=== PATIENT | male | born 1990 | race Caucasian/White ===

== ENCOUNTER 2017-09-03 10:15 | Emergency (ER) | payer MEDICAID ==
[~2017-09-03] VITALS: Ht 193 cm; Wt 113.0 kg
[2017-09-03] MEDS ORDERED: PANTOPRAZOLE 80 MG in SODIUM CHLORIDE 0.9% 50 ML IVPB ONE (10:43)
[2017-09-03] MEDS ORDERED: SODIUM CHLORIDE FLUSH 10ML SYR IVF ONE (11:00)
[2017-09-03] MEDS ORDERED: ONDANSETRON ODT 4 MG PO ONE (11:00)
[2017-09-03] MEDS ORDERED: FAMOTIDINE 20 MG/2 ML IVPush ONE (11:00)
[2017-09-03] MEDS ORDERED: ONDANSETRON ODT 8 MG ONE (11:03)
[2017-09-03] MEDS ORDERED: FAMOTIDINE 20 MG/2 ML ONE (11:03)
[2017-09-03 11:06] LABS: BASOPHILS # (AUTO) 0.02 x10^3/uL (0-0.1); BASOPHILS % (AUTO) 0 % (0-1); EOSINOPHILS # (AUTO) 0.05 x10^3/uL (0-0.4); EOSINOPHILS % (AUTO) 0 % (1-7); LYMPHOCYTES % (AUTO) 16 % (22-44); MD NO; MEAN CORPUSCULAR HEMOGLOBIN 31.4 pg (27.5-34.5); MEAN CORPUSCULAR HGB CONC 34.1 g/dL (33.2-36.2); MEAN CORPUSCULAR VOLUME 91.9 fL (81-97); MEAN PLATELET VOLUME 9.1 fL (7.4-10.4); MONOCYTES % (AUTO) 4 % (2-9); NEUTROPHILS # (AUTO) 8.77 x10^3/uL (1.8-6.8); NEUTROPHILS % (AUTO) 80 % (42-75); PLATELET COUNT 211 x10^3/uL (130-400); RED BLOOD COUNT 5.49 x10^6/uL (4.38-5.82); RED CELL DISTRIBUTION WIDTH 13.1 % (9.4-14.8)
[2017-09-03 11:16] LABS: ALANINE AMINOTRANSFERASE 23 U/L (12-78); ALBUMIN 4.2 g/dL (3.4-5.0); ANION GAP 8 mmol/L (5-15); CALCIUM 8.9 mg/dL (8.5-10.1); CHLORIDE 109 mmol/L (98-107); CREATININE 1.09 mg/dL (0.7-1.3)
[2017-09-03 11:18] LABS: ALKALINE PHOSPHATASE 68 U/L (45-117); BILIRUBIN,TOTAL 0.4 mg/dL (0.2-1.0); TOTAL PROTEIN 8.2 g/dL (6.4-8.2)
[2017-09-03 13:40] VITALS: BP 116/67
== END 2017-09-03 14:22 | disposition home or self-care (01) ==
LOC: ED 12:45
DX: K92.0 Hematemesis (principal)
CPT/HCPCS: 36415; 74021; 80053; 83690; 85025; 96365; 96375; 99285; C9113; Q0162; S0028

== ENCOUNTER 2017-09-27 08:43 | Emergency (ER) | payer MEDICAID ==
[~2017-09-27] VITALS: Ht 193 cm; Wt 110.9 kg
[2017-09-27] MEDS ORDERED: [UNRECOGNIZED DRUG - OTHER] (09:16)
[2017-09-27] MEDS ORDERED: BP MED (09:17)
[2017-09-27] MEDS ORDERED: SERT25TA PO (09:17)
[2017-09-27] MEDS ORDERED: HEART MED (09:17)
[2017-09-27] MEDS ORDERED: MAALOX/HYOSCYAMINE/LIDOCAINE 45 ML BTL PO ONE (09:30)
[2017-09-27] MEDS ORDERED: MAALOX/HYOSCYAMINE/LIDOCAINE 45 ML BTL ONE (09:36)
[2017-09-27 09:49] LABS: BASOPHILS # (AUTO) 0.03 x10^3/uL (0-0.1); BASOPHILS % (AUTO) 0 % (0-1); EOSINOPHILS # (AUTO) 0.11 x10^3/uL (0-0.4); EOSINOPHILS % (AUTO) 1 % (1-7); LYMPHOCYTES # (AUTO) 1.66 x10^3/uL (1-3.4); LYMPHOCYTES % (AUTO) 22 % (22-44); MD NO; MEAN CORPUSCULAR HEMOGLOBIN 30.7 pg (27.5-34.5); MEAN CORPUSCULAR HGB CONC 33.3 g/dL (33.2-36.2); MEAN CORPUSCULAR VOLUME 92.1 fL (81-97); MEAN PLATELET VOLUME 9.2 fL (7.4-10.4); MONOCYTES # (AUTO) 0.55 x10^3/uL (0.2-0.8); MONOCYTES % (AUTO) 7 % (2-9); NEUTROPHILS # (AUTO) 5.22 x10^3/uL (1.8-6.8); NEUTROPHILS % (AUTO) 69 % (42-75); PLATELET COUNT 194 x10^3/uL (130-400); RED BLOOD COUNT 5.24 x10^6/uL (4.38-5.82); RED CELL DISTRIBUTION WIDTH 12.4 % (9.4-14.8)
[2017-09-27 09:59] LABS: ALBUMIN 3.9 g/dL (3.4-5.0); ANION GAP 6 mmol/L (5-15); CALCIUM 8.5 mg/dL (8.5-10.1); CHLORIDE 111 mmol/L (98-107)
[2017-09-27 10:03] LABS: ALANINE AMINOTRANSFERASE 22 U/L (12-78); ALKALINE PHOSPHATASE 61 U/L (45-117); BILIRUBIN,TOTAL 0.5 mg/dL (0.2-1.0); CREATININE 1.07 mg/dL (0.7-1.3); TOTAL PROTEIN 7.4 g/dL (6.4-8.2)
[2017-09-27 11:17] VITALS: BP 139/76
== END 2017-09-27 11:19 | disposition home or self-care (01) ==
LOC: ED 11:00
DX: K92.0 Hematemesis (principal); F17.200 Nicotine dependence, unspecified, uncomplicated; Z88.0 Allergy status to penicillin
CPT/HCPCS: 36415; 80053; 83690; 85025; 86677; 99284

== ENCOUNTER 2017-09-29 23:15 | Emergency (ER) | payer MEDICAID ==
[~2017-09-29] VITALS: Ht 193 cm; Wt 110.6 kg
[~2017-09-29 23:15] MED LIST: BP MED; HEART MED; SERT25TA PO; [UNRECOGNIZED DRUG - OTHER]
[2017-09-30 00:10] LABS: BASOPHILS # (AUTO) 0.05 x10^3/uL (0-0.1); BASOPHILS % (AUTO) 0 % (0-1); EOSINOPHILS # (AUTO) 0.17 x10^3/uL (0-0.4); EOSINOPHILS % (AUTO) 1 % (1-7); LYMPHOCYTES # (AUTO) 2.48 x10^3/uL (1-3.4); LYMPHOCYTES % (AUTO) 17 % (22-44); MD NO; MEAN CORPUSCULAR HEMOGLOBIN 31.6 pg (27.5-34.5); MEAN CORPUSCULAR HGB CONC 34.2 g/dL (33.2-36.2); MEAN CORPUSCULAR VOLUME 92.4 fL (81-97); MEAN PLATELET VOLUME 9.5 fL (7.4-10.4); MONOCYTES # (AUTO) 0.73 x10^3/uL (0.2-0.8); MONOCYTES % (AUTO) 5 % (2-9); NEUTROPHILS # (AUTO) 10.96 x10^3/uL (1.8-6.8); NEUTROPHILS % (AUTO) 76 % (42-75); PLATELET COUNT 206 x10^3/uL (130-400); RED BLOOD COUNT 5.15 x10^6/uL (4.38-5.82); RED CELL DISTRIBUTION WIDTH 12.8 % (9.4-14.8)
[2017-09-30 00:21] LABS: ALBUMIN 3.9 g/dL (3.4-5.0); ANION GAP 8 mmol/L (5-15); CALCIUM 9.3 mg/dL (8.5-10.1); CHLORIDE 109 mmol/L (98-107)
[2017-09-30 00:25] LABS: ALANINE AMINOTRANSFERASE 19 U/L (12-78); ALKALINE PHOSPHATASE 53 U/L (45-117); BILIRUBIN,TOTAL 0.7 mg/dL (0.2-1.0); CREATININE 1.12 mg/dL (0.7-1.3); TOTAL PROTEIN 7.6 g/dL (6.4-8.2)
[2017-09-30] MEDS ORDERED: PROMETHAZINE 25 MG/ML, 1ML IM ONE (01:00)
[2017-09-30] MEDS ORDERED: MAALOX/HYOSCYAMINE/LIDOCAINE 45 ML BTL PO ONE (01:00)
[2017-09-30] MEDS ORDERED: PROMETHAZINE 25 MG/ML, 1ML ONE (01:25)
[2017-09-30] MEDS ORDERED: MAALOX/HYOSCYAMINE/LIDOCAINE 45 ML BTL ONE (01:25)
[2017-09-30 01:45] LABS: MICROSCOPIC NOT IND
[2017-09-30 01:46] VITALS: BP 113/63
[2017-09-30 01:47] LABS: CULTURE INDICATED? NO
== END 2017-09-30 01:48 | disposition home or self-care (01) ==
LOC: ED 23:59
DX: F12.288 Cannabis dependence with other cannabis-induced disorder (principal); K22.6 Gastro-esophageal laceration-hemorrhage syndrome; R10.84 Generalized abdominal pain; R11.10 Vomiting, unspecified; F17.200 Nicotine dependence, unspecified, uncomplicated
CPT/HCPCS: 36415; 80053; 81003; 83690; 85025; 96372; 99284; J2550

== ENCOUNTER 2017-10-23 12:08 | Emergency (ER) | payer MEDICAID ==
[~2017-10-23] VITALS: Ht 193 cm; Wt 107.8 kg
[2017-10-23] MEDS ORDERED: SERT50TA PO (13:54)
[2017-10-23] MEDS ORDERED: ONDANSETRON ODT 4 MG PO ONE (14:00)
[2017-10-23] MEDS ORDERED: MAALOX/HYOSCYAMINE/LIDOCAINE 45 ML BTL PO ONE (14:00)
[2017-10-23] MEDS ORDERED: BACITRACIN ZINC OINT 500U/GM, 0.9 GM TP ONE (14:00)
[2017-10-23] MEDS ORDERED: PROMETHAZINE 25 MG/ML, 1ML IM ONE (14:00)
[2017-10-23] MEDS ORDERED: BACITRACIN ZINC OINT 500U/GM, 0.9 GM ONE (14:06)
[2017-10-23] MEDS ORDERED: ONDANSETRON ODT 4 MG ONE (14:07)
[2017-10-23] MEDS ORDERED: PROMETHAZINE 25 MG/ML, 1ML ONE (14:08)
[2017-10-23] MEDS ORDERED: MAALOX/HYOSCYAMINE/LIDOCAINE 45 ML BTL ONE (14:08)
[2017-10-23 14:15] LABS: BASOPHILS # (AUTO) 0.03 x10^3/uL (0-0.1); BASOPHILS % (AUTO) 0 % (0-1); EOSINOPHILS # (AUTO) 0.07 x10^3/uL (0-0.4); EOSINOPHILS % (AUTO) 1 % (1-7); LYMPHOCYTES # (AUTO) 1.65 x10^3/uL (1-3.4); LYMPHOCYTES % (AUTO) 23 % (22-44); MD NO; MEAN CORPUSCULAR HEMOGLOBIN 31.6 pg (27.5-34.5); MEAN CORPUSCULAR HGB CONC 34.1 g/dL (33.2-36.2); MEAN CORPUSCULAR VOLUME 92.6 fL (81-97); MEAN PLATELET VOLUME 9.4 fL (7.4-10.4); MONOCYTES # (AUTO) 0.86 x10^3/uL (0.2-0.8); MONOCYTES % (AUTO) 12 % (2-9); NEUTROPHILS # (AUTO) 4.52 x10^3/uL (1.8-6.8); NEUTROPHILS % (AUTO) 64 % (42-75); PLATELET COUNT 217 x10^3/uL (130-400); RED BLOOD COUNT 5.22 x10^6/uL (4.38-5.82); RED CELL DISTRIBUTION WIDTH 12.7 % (9.4-14.8)
[2017-10-23 14:28] LABS: ALANINE AMINOTRANSFERASE 22 U/L (12-78); ALBUMIN 3.8 g/dL (3.4-5.0); ANION GAP 7 mmol/L (5-15); CALCIUM 9.3 mg/dL (8.5-10.1); CHLORIDE 108 mmol/L (98-107)
[2017-10-23 14:30] LABS: ALKALINE PHOSPHATASE 72 U/L (45-117); BILIRUBIN,TOTAL 0.5 mg/dL (0.2-1.0); TOTAL PROTEIN 7.7 g/dL (6.4-8.2)
[2017-10-23] MEDS ORDERED: HYDROcodone/APAP 5/325 TABLET ONE (15:23)
[2017-10-23] MEDS ORDERED: HYDROcodone/APAP 5/325 TABLET PO ONE (15:30)
[2017-10-23 16:27] VITALS: BP 137/69
[2017-10-23] MEDS ORDERED: SERT50TA5 PO (21:49)
[2017-10-23] MEDS ORDERED: ONDA4TAB7 PO (21:49)
[2017-10-23] MEDS ORDERED: LISI5TAB7 PO (21:49)
[2017-10-23] MEDS ORDERED: SUCR1TAB PO (21:49)
[2017-10-23] MEDS ORDERED: PROM25SU34 RC ×2 (21:49)
[2017-10-23] MEDS ORDERED: OMEP40CA6 PO (21:49)
== END 2017-10-23 16:30 | disposition home or self-care (01) ==
LOC: ED 14:32
DX: T25.221A Burn of second degree of right foot, initial encounter (principal); R11.2 Nausea with vomiting, unspecified; T31.0 Burns involving less than 10% of body surface; X08.8XXA Exposure to other specified smoke, fire and flames, initial encounter; Y93.89 Activity, other specified; Y92.89 Other specified places as the place of occurrence of the external cause; Y99.8 Other external cause status
CPT/HCPCS: 16000; 36415; 80053; 83690; 85025; 96372; 99284; J2550; Q0162

== ENCOUNTER 2017-10-23 19:51 | Inpatient (IN) | payer MEDICAID ==
[~2017-10-23] VITALS: Ht 182.9 cm; Wt 110.8 kg
[~2017-10-23 19:51] MED LIST changes: +ETOMIDATE 20 MG/10 ML ONE; +MIDAZOLAM 1 MG/ML, 5ML ONE; +PROPOFOL 10 MG/ML, 100ML IV ONE; +SERT50TA PO; +SUCCINYLCHOLINE 20 MG/ML, 10ML ONE
[2017-10-23] MEDS ORDERED: SODIUM CHLORIDE FLUSH 10ML SYR IVF ONE (20:00)
[2017-10-23 20:16] LABS: BASOPHILS # (AUTO) 0.03 x10^3/uL (0-0.1); BASOPHILS % (AUTO) 0 % (0-1); EOSINOPHILS # (AUTO) 0.08 x10^3/uL (0-0.4); EOSINOPHILS % (AUTO) 1 % (1-7); LYMPHOCYTES # (AUTO) 2.25 x10^3/uL (1-3.4); LYMPHOCYTES % (AUTO) 27 % (22-44); MD NO; MEAN CORPUSCULAR HEMOGLOBIN 31.7 pg (27.5-34.5); MEAN CORPUSCULAR HGB CONC 34.2 g/dL (33.2-36.2); MEAN CORPUSCULAR VOLUME 92.6 fL (81-97); MEAN PLATELET VOLUME 9.2 fL (7.4-10.4); MONOCYTES # (AUTO) 1.01 x10^3/uL (0.2-0.8); MONOCYTES % (AUTO) 12 % (2-9); NEUTROPHILS # (AUTO) 4.91 x10^3/uL (1.8-6.8); NEUTROPHILS % (AUTO) 59 % (42-75); PLATELET COUNT 206 x10^3/uL (130-400); RED BLOOD COUNT 5.17 x10^6/uL (4.38-5.82); RED CELL DISTRIBUTION WIDTH 12.6 % (9.4-14.8)
[2017-10-23 20:25] LABS: ALANINE AMINOTRANSFERASE 23 U/L (12-78); ALBUMIN 3.8 g/dL (3.4-5.0); ANION GAP 6 mmol/L (5-15); CALCIUM 8.6 mg/dL (8.5-10.1); CHLORIDE 110 mmol/L (98-107)
[2017-10-23 20:28] LABS: ALKALINE PHOSPHATASE 71 U/L (45-117); BILIRUBIN,TOTAL 0.3 mg/dL (0.2-1.0); CREATININE 1.16 mg/dL (0.7-1.3); TOTAL PROTEIN 7.6 g/dL (6.4-8.2)
[2017-10-23 20:33] LABS: ACETAMINOPHEN < 2 mcg/mL (10-30)
[2017-10-23] MEDS ORDERED: METOCLOPRAMIDE 5 MG/ML, 2ML ONE (20:40)
[2017-10-23] MEDS ORDERED: METOCLOPRAMIDE 5 MG/ML, 2ML IVPush ONE (21:00)
[2017-10-23] MEDS ORDERED: PLEASE ENTER WEIGHT MC SCH (21:00)
[2017-10-23] MEDS ORDERED: LISI5TAB7 PO (21:49)
[2017-10-23] MEDS ORDERED: SUCR1TAB PO (21:49)
[2017-10-23] MEDS ORDERED: OMEP40CA6 PO (21:49)
[2017-10-23] MEDS ORDERED: ONDA4TAB7 PO (21:49)
[2017-10-23] MEDS ORDERED: SERT50TA5 PO (21:49)
[2017-10-23] MEDS ORDERED: PROM25SU34 RC ×2 (21:49)
[2017-10-23] MEDS ORDERED: SODIUM CHLORIDE 0.9% 1,000 ML IV ONE (23:05)
[2017-10-23] MEDS: PROPOFOL 100 ML IV PRN (23:20)
[2017-10-23] MEDS ORDERED: PROPOFOL 100 ML IV ONE (23:55)
[2017-10-24] MEDS ORDERED: SENNOSIDES 8.8 MG/5 ML ORAL SOL NG PRN
[2017-10-24] MEDS ORDERED: LACTULOSE 20 GM/30 ML UDC NG PRN
[2017-10-24] MEDS ORDERED: BISACODYL 10 MG SUPP PR PRN
[2017-10-24] MEDS ORDERED: LIDOCAINE-MPF 1%, 2ML ENDO PRN
[2017-10-24] MEDS ORDERED: PHARMACY MAY ADJ FOR RENAL FX MC SCH
[2017-10-24] MEDS ORDERED: SENNA/DOCUSATE TABLET NG PRN
[2017-10-24] MEDS ORDERED: MIDAZOLAM 1 MG/ML, 5ML IVPush ONE
[2017-10-24 00:06] LABS: AMPHETAMINE SCREEN, URINE Negative (Negative); BARBITURATE SCREEN, URINE Negative (Negative); BENZODIAZEPINE SCREEN, URINE Negative (Negative); CANNABINOID SCREEN, URINE Positive (Negative); COCAINE SCREEN, URINE Negative (Negative); METHADONE SCREEN, URINE Negative (Negative); OPIATE SCREEN, URINE Positive (Negative)
[2017-10-24] MEDS ORDERED: LABETALOL 5MG/ML, 20ML IVPush PRN (00:30)
[2017-10-24] MEDS ORDERED: ETOMIDATE 20 MG/10 ML IVPush ONE (00:30)
[2017-10-24] MEDS ORDERED: ONDANSETRON 2MG/ML, 2ML IVPush PRN (00:30)
[2017-10-24] MEDS ORDERED: ATROPINE SYRINGE 0.1 MG/ML, 10ML IVPush ONE (00:30)
[2017-10-24] MEDS ORDERED: SUCCINYLCHOLINE 20 MG/ML, 10ML IVPush ONE (00:30)
[2017-10-24] MEDS ORDERED: FAMOTIDINE 20 MG/2 ML ONE (00:37)
[2017-10-24] MEDS ORDERED: ENOXAPARIN 40 MG/0.4 ML ONE (00:37)
[2017-10-24] MEDS: ENOXAPARIN 40 MG/0.4 ML SQ SCH (00:39)
[2017-10-24] MEDS: FAMOTIDINE 20 MG/2 ML IV SCH ×2 (00:39→13:47)
[2017-10-24] MEDS: D5%-0.45NACL+KCL 20MEQ 1,000 ML IV SCH ×2 (01:09→10:12)
[2017-10-24 04:24] LABS: BASOPHILS # (AUTO) 0.02 x10^3/uL (0-0.1); BASOPHILS % (AUTO) 0 % (0-1); EOSINOPHILS # (AUTO) 0.01 x10^3/uL (0-0.4); EOSINOPHILS % (AUTO) 0 % (1-7); LYMPHOCYTES # (AUTO) 1.49 x10^3/uL (1-3.4); LYMPHOCYTES % (AUTO) 16 % (22-44); MD NO; MEAN CORPUSCULAR HGB CONC 33.7 g/dL (33.2-36.2); MEAN PLATELET VOLUME 9.5 fL (7.4-10.4); MONOCYTES # (AUTO) 0.61 x10^3/uL (0.2-0.8); MONOCYTES % (AUTO) 6 % (2-9); NEUTROPHILS # (AUTO) 7.39 x10^3/uL (1.8-6.8); NEUTROPHILS % (AUTO) 78 % (42-75); PLATELET COUNT 191 x10^3/uL (130-400); RED CELL DISTRIBUTION WIDTH 12.7 % (9.4-14.8)
[2017-10-24 04:25] VITALS: BP 114/66
[2017-10-24 04:37] LABS: ANION GAP 5 mmol/L (5-15); CALCIUM 8.3 mg/dL (8.5-10.1); CHLORIDE 114 mmol/L (98-107)
[2017-10-24] MEDS: PROPOFOL 100 ML IV PRN ×6 (07:57→23:05)
[2017-10-24] MEDS ORDERED: EPINEPHRINE SYRINGE 0.1 MG/ML, 10ML ONE (08:00)
[2017-10-24] MEDS ORDERED: ATROPINE SYRINGE 0.1 MG/ML, 10ML ONE (08:00)
[2017-10-24] MEDS ORDERED: FAMOTIDINE 20 MG/2 ML IVPush SCH (09:00)
[2017-10-24] MEDS: LORazepam 2 MG/ML, 1ML IVPush PRN ×2 (13:47→22:35)
[2017-10-24] MEDS: morphine SULFATE 10 MG/ML, 1ML IVPush PRN ×2 (16:16→21:21)
[2017-10-24] MEDS: PANTOPRAZOLE 40 MG IV IVPush SCH (20:43)
[2017-10-24] MEDS: FOLIC ACID 1 MG TABLET PO SCH (20:43)
[2017-10-24] MEDS: THIAMINE 100MG TABLET PO SCH (20:43)
[2017-10-24] MEDS ORDERED: SODIUM CHLORIDE 0.9% 1,000 ML IV SCH (23:30)
[2017-10-25] MEDS: ENOXAPARIN 40 MG/0.4 ML SQ SCH (00:04)
[2017-10-25] MEDS: PROPOFOL 100 ML IV PRN ×4 (01:21→09:37)
[2017-10-25] MEDS ORDERED: MORPHINE SULFATE 4 MG/ML, 1ML ONE ×2 (01:41→04:55)
[2017-10-25] MEDS: morphine SULFATE 10 MG/ML, 1ML IVPush PRN ×2 (01:43→04:57)
[2017-10-25] MEDS: LORazepam 2 MG/ML, 1ML IVPush PRN (03:47)
[2017-10-25 04:00] VITALS: BP 127/76
[2017-10-25 04:15] LABS: BASOPHILS # (AUTO) 0.04 x10^3/uL (0-0.1); BASOPHILS % (AUTO) 0 % (0-1); EOSINOPHILS # (AUTO) 0.07 x10^3/uL (0-0.4); EOSINOPHILS % (AUTO) 1 % (1-7); LYMPHOCYTES # (AUTO) 2.38 x10^3/uL (1-3.4); LYMPHOCYTES % (AUTO) 25 % (22-44); MD NO; MEAN CORPUSCULAR HEMOGLOBIN 31.3 pg (27.5-34.5); MEAN CORPUSCULAR HGB CONC 33.7 g/dL (33.2-36.2); MEAN CORPUSCULAR VOLUME 92.8 fL (81-97); MEAN PLATELET VOLUME 9.3 fL (7.4-10.4); MONOCYTES # (AUTO) 0.84 x10^3/uL (0.2-0.8); MONOCYTES % (AUTO) 9 % (2-9); NEUTROPHILS # (AUTO) 6.03 x10^3/uL (1.8-6.8); NEUTROPHILS % (AUTO) 64 % (42-75); PLATELET COUNT 160 x10^3/uL (130-400); RED BLOOD COUNT 4.54 x10^6/uL (4.38-5.82); RED CELL DISTRIBUTION WIDTH 12.8 % (9.4-14.8)
[2017-10-25 04:25] LABS: ALANINE AMINOTRANSFERASE 18 U/L (12-78); ALBUMIN 3.1 g/dL (3.4-5.0); ANION GAP 4 mmol/L (5-15); CHLORIDE 112 mmol/L (98-107); CREATININE 1.18 mg/dL (0.7-1.3)
[2017-10-25 04:27] LABS: ALKALINE PHOSPHATASE 59 U/L (45-117); BILIRUBIN,TOTAL 0.5 mg/dL (0.2-1.0); TOTAL PROTEIN 6.4 g/dL (6.4-8.2)
[2017-10-25] MEDS: PANTOPRAZOLE 40 MG IV IVPush SCH ×2 (06:16→20:30)
[2017-10-25] MEDS ORDERED: POTASSIUM PHOSPHATE 44 MEQ in SODIUM CHLORIDE 0.9% 500 ML IV ONE (06:30)
[2017-10-25 20:00] VITALS: BP 145/66
[2017-10-25] MEDS: THIAMINE 100MG TABLET PO SCH (20:30)
[2017-10-25] MEDS: FOLIC ACID 1 MG TABLET PO SCH (20:30)
[2017-10-25] MEDS: KETOROLAC 30 MG/1 ML IVPush PRN (20:30)
[2017-10-25] MEDS: NICOTINE 21 MG/24 HR PATCH.TD24 TD SCH (23:04)
[2017-10-26 00:26] VITALS: BP 136/81
[2017-10-26] MEDS: KETOROLAC 30 MG/1 ML IVPush PRN (05:35)
[2017-10-26 05:57] LABS: BASOPHILS # (AUTO) 0.03 x10^3/uL (0-0.1); BASOPHILS % (AUTO) 0 % (0-1); EOSINOPHILS # (AUTO) 0.03 x10^3/uL (0-0.4); EOSINOPHILS % (AUTO) 0 % (1-7); LYMPHOCYTES # (AUTO) 1.84 x10^3/uL (1-3.4); LYMPHOCYTES % (AUTO) 20 % (22-44); MD NO; MEAN CORPUSCULAR HEMOGLOBIN 31.5 pg (27.5-34.5); MEAN CORPUSCULAR VOLUME 92.7 fL (81-97); MEAN PLATELET VOLUME 9.1 fL (7.4-10.4); MONOCYTES # (AUTO) 0.93 x10^3/uL (0.2-0.8); MONOCYTES % (AUTO) 10 % (2-9); NEUTROPHILS # (AUTO) 6.52 x10^3/uL (1.8-6.8); NEUTROPHILS % (AUTO) 70 % (42-75); PLATELET COUNT 192 x10^3/uL (130-400); RED BLOOD COUNT 4.92 x10^6/uL (4.38-5.82); RED CELL DISTRIBUTION WIDTH 12.6 % (9.4-14.8)
[2017-10-26 06:08] LABS: CHLORIDE 108 mmol/L (98-107)
[2017-10-26 06:12] LABS: ALANINE AMINOTRANSFERASE 21 U/L (12-78); ALBUMIN 3.6 g/dL (3.4-5.0); ALKALINE PHOSPHATASE 66 U/L (45-117); ANION GAP 8 mmol/L (5-15); CALCIUM 8.8 mg/dL (8.5-10.1); CREATININE 0.97 mg/dL (0.7-1.3); TOTAL PROTEIN 7.6 g/dL (6.4-8.2); TRIGLYCERIDES 110 mg/dL (50-200)
[2017-10-26 07:52] LABS: THYROID STIMULATING HORMONE 1.12 mIU/L (0.358-3.740)
[2017-10-26 08:20] VITALS: BP 135/82
[2017-10-26] MEDS: POTASSIUM CHLORIDE 20 MEQ PACKET PO SCH ×2 (08:26→17:29)
[2017-10-26] MEDS: PANTOPRAZOLE 40 MG IV IVPush SCH (08:26)
[2017-10-26] MEDS: LIDODERM 5% PATCH TD SCH (10:28)
[2017-10-26 14:30] VITALS: BP 140/92
[2017-10-26 19:32] VITALS: BP 141/94
[2017-10-26] MEDS: FOLIC ACID 1 MG TABLET PO SCH (19:40)
[2017-10-26] MEDS: THIAMINE 100MG TABLET PO SCH (19:40)
[2017-10-26] MEDS: PANTOPROZOLE 40MG TABLET PO SCH (20:53)
[2017-10-26] MEDS: NICOTINE 21 MG/24 HR PATCH.TD24 TD SCH (21:10)
[2017-10-26] MEDS ORDERED: HALOPERIDOL 5 MG/ML IM ONE (23:30)
[2017-10-26] MEDS ORDERED: HALOPERIDOL 5 MG/ML IV ONE (23:30)
[2017-10-26] MEDS: ENOXAPARIN 40 MG/0.4 ML SQ SCH ×2 (23:51)
[2017-10-27 05:42] LABS: BASOPHILS % (AUTO) 1 % (0-1); EOSINOPHILS # (AUTO) 0.09 x10^3/uL (0-0.4); EOSINOPHILS % (AUTO) 1 % (1-7); LYMPHOCYTES # (AUTO) 1.82 x10^3/uL (1-3.4); LYMPHOCYTES % (AUTO) 17 % (22-44); MD NO; MEAN CORPUSCULAR HEMOGLOBIN 31.3 pg (27.5-34.5); MEAN CORPUSCULAR HGB CONC 34.2 g/dL (33.2-36.2); MEAN CORPUSCULAR VOLUME 91.7 fL (81-97); MEAN PLATELET VOLUME 8.6 fL (7.4-10.4); MONOCYTES # (AUTO) 0.88 x10^3/uL (0.2-0.8); MONOCYTES % (AUTO) 8 % (2-9); NEUTROPHILS # (AUTO) 7.84 x10^3/uL (1.8-6.8); NEUTROPHILS % (AUTO) 73 % (42-75); PLATELET COUNT 212 x10^3/uL (130-400); RED BLOOD COUNT 4.78 x10^6/uL (4.38-5.82); RED CELL DISTRIBUTION WIDTH 12.5 % (9.4-14.8)
[2017-10-27 05:55] LABS: ANION GAP 6 mmol/L (5-15); CHLORIDE 109 mmol/L (98-107); CREATININE 0.85 mg/dL (0.7-1.3)
[2017-10-27 07:30] VITALS: BP 151/100
[2017-10-27] MEDS ORDERED: LISINOPRIL 5 MG TABLET PO SCH (09:00)
[2017-10-27] MEDS ORDERED: SERTRALINE 50MG TABLET PO SCH (09:00)
[2017-10-27] MEDS: POTASSIUM CHLORIDE 20 MEQ PACKET PO SCH (09:23)
[2017-10-27] MEDS: PANTOPROZOLE 40MG TABLET PO SCH (09:23)
[2017-10-27] MEDS: LIDODERM 5% PATCH TD SCH (09:30)
[2017-10-27] MEDS ORDERED: CYCLOBENZAPRINE 10 MG TABLET PO PRN (11:00)
== END 2017-10-27 16:45 | DRG 917 ==
LOC: ED 20:40 → EDIP 23:05 → CCU 10-24 00:26 → 3NE 10-25 18:23 → 2N 10-26 14:30
PROVIDERS: ADMIT Internal Medicine; ATTEND Internal Medicine
PROC: 5A1945Z Respiratory Ventilation, 24-96 Consecutive Hours (ICD-10-PCS; principal; 2017-10-23)
PROC: 0BH17EZ Insertion of Endotracheal Airway into Trachea, Via Natural or Artificial Opening (ICD-10-PCS; 2017-10-23)
DX: T42.8X2A Poisoning by antiparkinsonism drugs and other central muscle-tone depressants, intentional self-harm, initial encounter (principal); G92 Toxic encephalopathy; J96.00 Acute respiratory failure, unspecified whether with hypoxia or hypercapnia; Z99.11 Dependence on respirator [ventilator] status; E87.6 Hypokalemia; F32.9 Major depressive disorder, single episode, unspecified; G40.909 Epilepsy, unspecified, not intractable, without status epilepticus; G89.29 Other chronic pain; I10 Essential (primary) hypertension; K21.9 Gastro-esophageal reflux disease without esophagitis; Z51.5 Encounter for palliative care; Z72.0 Tobacco use; Z87.19 Personal history of other diseases of the digestive system; Z91.5 Personal history of self-harm; Y92.89 Other specified places as the place of occurrence of the external cause; M54.9 Dorsalgia, unspecified
CPT/HCPCS: 36415; 36600; 70450; 71045; 80048; 80053; 80307; 80329; 82607; 82803; 83735; 84100; 84443; 84478; 85025; 87070; 87081; 87205; 93005; 94002; 94003; 96374; 96375; J0461; J1650; J1885; J2250; J2405; J2704; C9113; G0480; J0330; J1630; J2060; J2270; J2765; J3480; J7030; J7040; S0028

== ENCOUNTER 2018-01-30 10:09 | Emergency (ER) | payer MEDICAID ==
[~2018-01-30] VITALS: Ht 193 cm; Wt 95.0 kg
[~2018-01-30 10:09] MED LIST changes: -ETOMIDATE 20 MG/10 ML ONE; +LISI5TAB7 PO; -MIDAZOLAM 1 MG/ML, 5ML ONE; +OMEP40CA6 PO; +ONDA4TAB7 PO; +PROM25SU34 RC; -PROPOFOL 10 MG/ML, 100ML IV ONE; +SERT50TA5 PO; -SUCCINYLCHOLINE 20 MG/ML, 10ML ONE; +SUCR1TAB PO
[2018-01-30] MEDS ORDERED: ONDANSETRON ODT 8 MG PO ONE (11:00)
[2018-01-30] MEDS ORDERED: MAALOX/HYOSCYAMINE/LIDOCAINE 45 ML BTL PO ONE (11:00)
[2018-01-30] MEDS ORDERED: FAMOTIDINE 20 MG/2 ML IVP ONE (11:00)
[2018-01-30 11:02] LABS: BASOPHILS # (AUTO) 0.03 x10^3/uL (0-0.1); BASOPHILS % (AUTO) 0 % (0-1); EOSINOPHILS # (AUTO) 0.18 x10^3/uL (0-0.4); EOSINOPHILS % (AUTO) 2 % (1-7); LYMPHOCYTES # (AUTO) 1.47 x10^3/uL (1-3.4); LYMPHOCYTES % (AUTO) 16 % (22-44); MD NO; MEAN CORPUSCULAR HEMOGLOBIN 31.2 pg (27.5-34.5); MEAN CORPUSCULAR HGB CONC 33.7 g/dL (33.2-36.2); MEAN CORPUSCULAR VOLUME 92.4 fL (81-97); MEAN PLATELET VOLUME 8.7 fL (7.4-10.4); MONOCYTES % (AUTO) 7 % (2-9); NEUTROPHILS # (AUTO) 7.15 x10^3/uL (1.8-6.8); NEUTROPHILS % (AUTO) 75 % (42-75); PLATELET COUNT 199 x10^3/uL (130-400); RED BLOOD COUNT 4.76 x10^6/uL (4.38-5.82); RED CELL DISTRIBUTION WIDTH 13.3 % (9.4-14.8)
[2018-01-30 11:10] LABS: INTERNATIONAL NORMALIZED RATIO 0.99 (0.93-1.1); PROTHROMBIN TIME 10.2 Seconds (9.6-11.5)
[2018-01-30 11:13] LABS: ALANINE AMINOTRANSFERASE 22 U/L (12-78); ALBUMIN 3.5 g/dL (3.4-5.0); ANION GAP 7 mmol/L (5-15); CALCIUM 8.8 mg/dL (8.5-10.1); CHLORIDE 106 mmol/L (98-107); CREATININE 0.99 mg/dL (0.7-1.3)
[2018-01-30] MEDS ORDERED: ONDANSETRON ODT 8 MG ONE (11:13)
[2018-01-30] MEDS ORDERED: MAALOX/HYOSCYAMINE/LIDOCAINE 45 ML BTL ONE (11:14)
[2018-01-30] MEDS ORDERED: FAMOTIDINE 20 MG/2 ML ONE (11:14)
[2018-01-30 11:15] LABS: ALKALINE PHOSPHATASE 58 U/L (45-117); BILIRUBIN,TOTAL 0.4 mg/dL (0.2-1.0); TOTAL PROTEIN 6.9 g/dL (6.4-8.2)
[2018-01-30 11:48] VITALS: BP 126/60
[2018-01-30] MEDS ORDERED: SODIUM CHLORIDE FLUSH 10ML SYR IVF ONE (12:00)
== END 2018-01-30 12:03 | disposition home or self-care (01) ==
LOC: ED 10:41
DX: K29.00 Acute gastritis without bleeding (principal); K22.6 Gastro-esophageal laceration-hemorrhage syndrome; F17.200 Nicotine dependence, unspecified, uncomplicated
CPT/HCPCS: 36415; 80053; 83690; 85025; 85610; 96374; 99284; Q0162; S0028

== ENCOUNTER 2018-06-02 14:48 | Inpatient (IN) | payer MEDICAID ==
[~2018-06-02] VITALS: Ht 182.9 cm; Wt 99.4 kg
[~2018-06-02 14:48] MED LIST changes: +SERT50TA28 PO; -SERT50TA5 PO
--- NOTE | 2018-06-02 14:50 | NUR ---
PATIENT ARRIVES FROM HOME BY AMBLANCE NON-RESPONSIVE, MEDICATED BY REMESA, PATIENT IS ABLE TO MAINTAIN GAG REFLEX. MONITOR, BP, PULSE OX ESTABLISHED, PATIENT CHANGED INTO GOWN. NO RESPONSE WITH NOXIOUS STIMULI
[2018-06-02] MEDS ORDERED: PLEASE ENTER HEIGHT AND WEIGHT MC SCH (15:00)
[2018-06-02] MEDS ORDERED: SODIUM CHLORIDE FLUSH 10ML SYR IVF ONE (15:00)
[2018-06-02 15:21] LABS: BASOPHILS # (AUTO) 0.01 x10^3/uL (0-0.1); BASOPHILS % (AUTO) 0 % (0-1); EOSINOPHILS % (AUTO) 0 % (1-7); LYMPHOCYTES # (AUTO) 0.73 x10^3/uL (1-3.4); LYMPHOCYTES % (AUTO) 7 % (22-44); MD NO; MEAN CORPUSCULAR HEMOGLOBIN 32.1 pg (27.5-34.5); MEAN CORPUSCULAR HGB CONC 34.8 g/dL (33.2-36.2); MEAN CORPUSCULAR VOLUME 92.4 fL (81-97); MEAN PLATELET VOLUME 9.5 fL (7.4-10.4); MONOCYTES # (AUTO) 0.89 x10^3/uL (0.2-0.8); MONOCYTES % (AUTO) 9 % (2-9); NEUTROPHILS # (AUTO) 8.85 x10^3/uL (1.8-6.8); NEUTROPHILS % (AUTO) 84 % (42-75); PLATELET COUNT 144 x10^3/uL (130-400); RED BLOOD COUNT 4.76 x10^6/uL (4.38-5.82); RED CELL DISTRIBUTION WIDTH 12.9 % (9.4-14.8)
[2018-06-02 15:27] LABS: ALBUMIN 3.8 g/dL (3.4-5.0); ANION GAP 9 mmol/L (5-15); CALCIUM 8.9 mg/dL (8.5-10.1); CHLORIDE 106 mmol/L (98-107); SALICYLATE LEVEL 3.6 mg/dL (2.8-20.0)
[2018-06-02 15:30] LABS: ALANINE AMINOTRANSFERASE 13 U/L (12-78); ALKALINE PHOSPHATASE 60 U/L (45-117); BILIRUBIN,TOTAL 0.7 mg/dL (0.2-1.0); CREATININE 1.13 mg/dL (0.7-1.3); TOTAL PROTEIN 7.6 g/dL (6.4-8.2)
[2018-06-02] MEDS ORDERED: SODIUM CHLORIDE 0.9% 1,000ML IVBOLUS ONE (15:30)
[2018-06-02 15:32] LABS: ACETAMINOPHEN < 2 mcg/mL (10-30)
--- NOTE | 2018-06-02 15:48 | NUR ---
6 BEATH RUN OF V-TACH DONE
[2018-06-02] MEDS ORDERED: ENALAPRILAT 1.25 MG/ML, 2ML IVPush PRN (16:00)
[2018-06-02] MEDS ORDERED: ACETAMINOPHEN 325 MG TABLET PO PRN (16:00)
[2018-06-02] MEDS ORDERED: ONDANSETRON 2MG/ML, 2ML IVPush PRN (16:00)
[2018-06-02] MEDS ORDERED: OXYcodone IR 5MG TABLET PO PRN (16:00)
[2018-06-02] MEDS ORDERED: morphine SULFATE 10 MG/ML, 1ML IVPush PRN (16:00)
[2018-06-02] MEDS ORDERED: POLYETHYLENE GLYCOL 17 GM PACKET PO PRN (16:00)
[2018-06-02] MEDS ORDERED: LABETALOL 5MG/ML, 20ML IVPush PRN (16:00)
[2018-06-02] MEDS ORDERED: BISACODYL 10 MG SUPP PR PRN ×2 (16:00→19:00)
[2018-06-02 16:07] LABS: MICROSCOPIC NOT IND
[2018-06-02 16:09] LABS: CULTURE INDICATED? NO
[2018-06-02 16:19] LABS: AMPHETAMINE SCREEN, URINE Negative (Negative); BARBITURATE SCREEN, URINE Negative (Negative); BENZODIAZEPINE SCREEN, URINE Positive (Negative); CANNABINOID SCREEN, URINE Positive (Negative); COCAINE SCREEN, URINE Negative (Negative); METHADONE SCREEN, URINE Negative (Negative); OPIATE SCREEN, URINE Negative (Negative)
[2018-06-02] MEDS: CEFTRIAXONE PMX 1GM/50ML 50 ML IV SCH (16:21)
[2018-06-02] MEDS ORDERED: CEFTRIAXONE PMX 1GM/50ML 50 ML ONE (16:21)
[2018-06-02] MEDS ORDERED: PROPOFOL 100 ML IV PRN (16:30)
[2018-06-02] MEDS ORDERED: VECURONIUM 10 MG IVPush ONE (16:30)
[2018-06-02] MEDS ORDERED: BACL20TA PO (16:38)
--- NOTE | 2018-06-02 16:49 | NUR ---
LONG CONVERSATION WITH FAMILY (GIRLFRIEND CR, MOTHER CHANDLER): SEVERAL CONCERNS WERE BROUGHT UP AND THEY WOULD LIKE TO BE ADDRESSED WHILE HE IS HERE. 1.)THEY ARE CONCERNED THAT HE IS NOT ON THE CORRECT MEDICATION. THEY REPORT THAT HE IS PRESCRIBED SERTALIZNE BY A [place] PRACITIONER THAT IS NOT A PSYCH PRACITIONER. THEY REPORT HE IS SUPPOSED TO BE SEEN AT [facility] WEEKLY BUT OFTEN MISSED APPOINTMENTS BECAUSE 'HE IS TOO TIRED'. PATIENT HAD AN APPOINTMENT ON 05/28 AND GIRLFRIEND REPORTS HE MISSED A PRIOR APPT AND THEY WOULD NO LONGER SEE HIM. PER GF PATIENT BECAME SI ON 05/27 - HE HAD A LASPE IN ANTI-DEPRESSANTS AND BECAME VERBALLY STATING THAT HE WANTED TO KILL SELF. HE THEN LEFT THE HOUSE, 'WENT FOR A DRIVE' AND WAS REPORTED A MISSING PERSON TO THE POLICE. HE WAS LATER FOUND INTHE MUD, IN A DITCH BY A STRANGER WHO BROUGHT HIM HOME? TO THE HOSPITAL? AND HE WAS SEEN YESTERDAY HERE IN THE ER AND RELEASED AFTER HE DENIES SI EVEN THOUG THE GF AND MOTHER REPORTED THIS. THIS PATIENT MIGHT BENEFIT FROM PYSCHIATRIST ALSO GETTING INVOLVED WITH MEDICATIONS AND APPROPRIATE TREATMENT. 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 3.) FAMILY IS CONCERNEDT THAT THIS PATIENT HAD SEIZURE ACTVITY ON THE WAY TO THE HOSPITAL AND HAD SIEZURES A CHILD. MOTHER REPORTS THAT HE HAD ABSCENCE SZ A CHILD AND WAS PLACED ON TEGRATOL AFTER A TRIAL OF TWO OTHER MEDICATIONS. APPARENTLY, PER MOTHER, THIS MEDICATION WORKED VERY WELL FOR THIS PATIENT. IN THE PAST TWO YEARS THE GF HAS NOTICED WHAT SHE DESCRIBES 'INCREASED SZ ACTIVITY' WHICH SHE SAYS HER WILL WAKES UP DISORIENTED AT NIGHT, SOMETIMES WALK AROUND AND IS NOT COHERANT. THIS HAPPENS MORE WHEN HE IS VERY TIRED.
--- NOTE | 2018-06-02 17:13 | NUR ---
SPOKE WITH SARAH, CHARGE ATTENDANT ABOUT INVOLVING MD GROVER, PYSCHIATRY
[2018-06-02] MEDS ORDERED: METRONIDAZOLE PMX 500MG/100ML 100 ML ONE (17:16)
[2018-06-02] MEDS: METRONIDAZOLE PMX 500MG/100ML 100 ML IV SCH (17:18)
--- NOTE | 2018-06-02 17:22 | NUR ---
CHANDLER (MOTHER) [phone] CR (GF) [phone]
--- NOTE | 2018-06-02 18:55 | NUR ---
REPORT FROM GUIDO HOFFMANN, ASSUMED CARE OF PT, IN NAD, SEDATED AND INTUBATED, ON ALL MONITORS VSS, SEE VS FLOW SHEET
[2018-06-02] MEDS: ALBUTEROL/IPRATROPIUM 2.5MG/0.5MG, 3 ML INLINE SCH ×2 (19:00→23:00)
[2018-06-02] MEDS ORDERED: DEXTROSE 4 GM TAB.CHEW PO PRN (19:00)
[2018-06-02] MEDS ORDERED: SENNOSIDES 8.8 MG/5 ML ORAL SOL NG PRN (19:00)
[2018-06-02] MEDS ORDERED: SODIUM CHLORIDE 0.9% 1,000 ML IV SCH (19:00)
[2018-06-02] MEDS ORDERED: DEXTROSE 50%, 50ML SYRINGE IVPush PRN (19:00)
[2018-06-02] MEDS ORDERED: LIDOCAINE-MPF 1%, 2ML ENDO PRN (19:00)
[2018-06-02] MEDS ORDERED: GLUCAGON 1 MG IM PRN (19:00)
[2018-06-02] MEDS ORDERED: FAMOTIDINE 20 MG/2 ML IV SCH (19:00)
[2018-06-02] MEDS ORDERED: SENNA/DOCUSATE TABLET NG PRN (19:00)
[2018-06-02] MEDS ORDERED: LACTULOSE 20 GM/30 ML UDC NG PRN (19:00)
[2018-06-02] MEDS ORDERED: PHARMACY MAY ADJ FOR RENAL FX MC SCH (19:00)
[2018-06-02 19:16] LABS: TRIGLYCERIDES 53 mg/dL (50-200)
[2018-06-02 19:27] LABS: SALICYLATE LEVEL 4.4 mg/dL (2.8-20.0)
[2018-06-02 19:30] LABS: TROPONIN I < 0.015 ng/mL (0.000-0.045)
[2018-06-02 19:32] LABS: ACETAMINOPHEN < 2 mcg/mL (10-30)
--- NOTE | 2018-06-02 19:41 | NUR ---
report to [facility] tucker icu with rn rt and a tech
[2018-06-02] MEDS: NS + 20MEQ KCL 1,000 ML IV SCH (20:37)
[2018-06-02] MEDS: HEPARIN 5,000 UNITS/ML, 1ML SQ SCH (20:53)
[2018-06-02] MEDS: INSULIN LISPRO 100 UNITS/ML, PEN SQ-INSULIN SCH (21:00)
[2018-06-02] MEDS: SODIUM CHLORIDE FLUSH 10ML SYR IVF SCH (21:18)
[2018-06-02] MEDS: PROPOFOL 100 ML IV PRN (22:30)
[2018-06-03] MEDS: METRONIDAZOLE PMX 500MG/100ML 100 ML IV SCH ×4 (00:29→23:24)
[2018-06-03 01:26] LABS: TROPONIN I < 0.015 ng/mL (0.000-0.045)
[2018-06-03 01:58] VITALS: BP 132/78
[2018-06-03] MEDS: ALBUTEROL/IPRATROPIUM 2.5MG/0.5MG, 3 ML INLINE SCH (02:30)
[2018-06-03] MEDS: HEPARIN 5,000 UNITS/ML, 1ML SQ SCH ×3 (03:48→19:44)
[2018-06-03] MEDS: NS + 20MEQ KCL 1,000 ML IV SCH ×4 (04:27→19:44)
[2018-06-03 04:35] LABS: BASOPHILS % (AUTO) 0 % (0-1); EOSINOPHILS # (AUTO) 0.01 x10^3/uL (0-0.4); EOSINOPHILS % (AUTO) 0 % (1-7); LYMPHOCYTES # (AUTO) 0.71 x10^3/uL (1-3.4); LYMPHOCYTES % (AUTO) 8 % (22-44); MD NO; MEAN CORPUSCULAR HEMOGLOBIN 32.1 pg (27.5-34.5); MEAN CORPUSCULAR HGB CONC 34.7 g/dL (33.2-36.2); MEAN CORPUSCULAR VOLUME 92.5 fL (81-97); MEAN PLATELET VOLUME 9.4 fL (7.4-10.4); MONOCYTES # (AUTO) 1.09 x10^3/uL (0.2-0.8); MONOCYTES % (AUTO) 12 % (2-9); NEUTROPHILS % (AUTO) 81 % (42-75); PLATELET COUNT 161 x10^3/uL (130-400)
[2018-06-03 04:48] LABS: ALANINE AMINOTRANSFERASE 13 U/L (12-78); ALBUMIN 3.3 g/dL (3.4-5.0); ANION GAP 6 mmol/L (5-15); CALCIUM 8.7 mg/dL (8.5-10.1); CHLORIDE 112 mmol/L (98-107); CREATININE 0.89 mg/dL (0.7-1.3)
[2018-06-03 04:51] LABS: ALKALINE PHOSPHATASE 54 U/L (45-117); BILIRUBIN,TOTAL 0.4 mg/dL (0.2-1.0); CHOL/HDL RATIO 2.3; CHOLESTEROL, TOTAL 96 mg/dL (140-239); HDL CHOL % 44 % (26-37); HDL CHOLESTEROL (DIRECT) 42 mg/dL (40-60); LDL CHOLESTEROL,CALCULATED 44 mg/dL (54-169); TOTAL PROTEIN 6.8 g/dL (6.4-8.2); TRIGLYCERIDES 49 mg/dL (50-200); VLDL CHOLESTEROL 10 mg/dL (0-25)
[2018-06-03] MEDS: PROPOFOL 100 ML IV PRN (05:31)
[2018-06-03] MEDS: INSULIN LISPRO 100 UNITS/ML, PEN SQ-INSULIN SCH ×2 (07:00→11:00)
[2018-06-03] MEDS ORDERED: PANTOPRAZOLE 40 MG IV IVPush SCH (07:30)
[2018-06-03] MEDS ORDERED: DEXMEDETOMIDINE 1,000 MCG in SODIUM CHLORIDE 0.9% 240 ML IV PRN (08:30)
[2018-06-03] MEDS ORDERED: LORazepam 2 MG/ML, 1ML IV ONE (08:30)
[2018-06-03] MEDS: SODIUM CHLORIDE FLUSH 10ML SYR IVF SCH ×2 (09:54→19:44)
[2018-06-03] MEDS: SENNA/DOCUSATE TABLET PO SCH (09:55)
[2018-06-03] MEDS: ZIPRASIDONE 20 MG INJ IM PRN ×2 (10:16→23:21)
[2018-06-03] MEDS: LORazepam 2 MG/ML, 1ML IVPush PRN ×2 (10:29→19:45)
[2018-06-03] MEDS ORDERED: LORazepam 2 MG/ML, 1ML IVPush PRN (11:00)
[2018-06-03] MEDS: CEFTRIAXONE PMX 1GM/50ML 50 ML IV SCH (15:39)
[2018-06-03] MEDS: FENTANYL PF 100 MCG/2ML IVPush PRN ×2 (17:08→19:45)
[2018-06-04] MEDS ORDERED: PROPOFOL 10 MG/ML, 100ML IV ONE
[2018-06-04] MEDS ORDERED: VECURONIUM 10 MG ONE
[2018-06-04] MEDS: HEPARIN 5,000 UNITS/ML, 1ML SQ SCH ×3 (03:16→21:25)
[2018-06-04 04:39] LABS: BASOPHILS # (AUTO) 0.04 x10^3/uL (0-0.1); BASOPHILS % (AUTO) 1 % (0-1); EOSINOPHILS % (AUTO) 0 % (1-7); LYMPHOCYTES # (AUTO) 1.33 x10^3/uL (1-3.4); LYMPHOCYTES % (AUTO) 17 % (22-44); MD NO; MEAN CORPUSCULAR HEMOGLOBIN 31.7 pg (27.5-34.5); MEAN CORPUSCULAR VOLUME 93.4 fL (81-97); MEAN PLATELET VOLUME 9.4 fL (7.4-10.4); MONOCYTES # (AUTO) 0.77 x10^3/uL (0.2-0.8); MONOCYTES % (AUTO) 10 % (2-9); NEUTROPHILS # (AUTO) 5.65 x10^3/uL (1.8-6.8); NEUTROPHILS % (AUTO) 72 % (42-75); PLATELET COUNT 169 x10^3/uL (130-400); RED CELL DISTRIBUTION WIDTH 13.3 % (9.4-14.8)
[2018-06-04] MEDS: SODIUM CHLORIDE FLUSH 10ML SYR IVF SCH ×2 (08:42→21:00)
[2018-06-04] MEDS: METRONIDAZOLE PMX 500MG/100ML 100 ML IV SCH ×2 (08:42→17:12)
[2018-06-04] MEDS: SENNA/DOCUSATE TABLET PO SCH (09:00)
[2018-06-04] MEDS ORDERED: TRAZ50TA66 PO (15:29)
[2018-06-04] MEDS: CEFTRIAXONE PMX 1GM/50ML 50 ML IV SCH (17:12)
[2018-06-04 18:18] VITALS: BP 149/88
[2018-06-04 21:19] VITALS: BP 145/84
[2018-06-04] MEDS: LORazepam 2 MG/ML, 1ML IVPush PRN (21:41)
[2018-06-05] MEDS: METRONIDAZOLE PMX 500MG/100ML 100 ML IV SCH ×2 (00:48→08:29)
[2018-06-05 02:33] VITALS: BP 138/75
[2018-06-05] MEDS: HEPARIN 5,000 UNITS/ML, 1ML SQ SCH ×3 (05:27→20:59)
[2018-06-05 07:33] VITALS: BP 141/87
[2018-06-05] MEDS: SENNA/DOCUSATE TABLET PO SCH ×2 (08:29→08:33)
[2018-06-05] MEDS: SODIUM CHLORIDE FLUSH 10ML SYR IVF SCH ×2 (08:30→20:59)
[2018-06-05 11:30] VITALS: BP 124/76
[2018-06-05 14:00] VITALS: BP 137/85
[2018-06-05] MEDS ORDERED: CEFD300C37 PO (14:33)
[2018-06-05] MEDS ORDERED: METR500T PO (14:33)
[2018-06-05] MEDS: metroNIDAZOLE 500 MG TABLET PO SCH ×2 (15:49→23:27)
[2018-06-05] MEDS: CEFDINIR 300 MG CAPSULE PO SCH (15:49)
[2018-06-05 19:44] VITALS: BP 129/76
[2018-06-05] MEDS ORDERED: DIVALPROEX 500 MG TAB.ER.24H PO SCH (21:00)
[2018-06-05] MEDS: LORazepam 2 MG/ML, 1ML IVPush PRN (21:37)
[2018-06-05] MEDS ORDERED: NICOTINE 21 MG/24 HR PATCH.TD24 ONE (21:58)
[2018-06-05] MEDS ORDERED: NICOTINE 21 MG/24 HR PATCH.TD24 TD SCH (22:30)
[2018-06-06 00:48] VITALS: BP 129/92
[2018-06-06] MEDS: LORazepam 2 MG/ML, 1ML IVPush PRN ×2 (02:22→09:18)
[2018-06-06] MEDS: CEFDINIR 300 MG CAPSULE PO SCH (04:08)
[2018-06-06] MEDS: HEPARIN 5,000 UNITS/ML, 1ML SQ SCH (06:14)
[2018-06-06 07:27] VITALS: BP 116/69
[2018-06-06] MEDS: SENNA/DOCUSATE TABLET PO SCH (07:52)
[2018-06-06] MEDS ORDERED: NICOTINE 21 MG/24 HR PATCH.TD24 TD SCH (09:00)
[2018-06-06] MEDS: SODIUM CHLORIDE FLUSH 10ML SYR IVF SCH (09:18)
[2018-06-06] MEDS: metroNIDAZOLE 500 MG TABLET PO SCH (09:18)
[2018-06-06 09:29] VITALS: BP 131/90
== END 2018-06-06 11:55 | DRG 917 ==
LOC: ED 15:54 → EDIP 15:55 → ED 17:05 → CCU 19:54 → ICU 06-04 18:25 → 2N 06-06 09:25
PROVIDERS: ADMIT Internal Medicine; ATTEND Internal Medicine
PROC: 0BH17EZ Insertion of Endotracheal Airway into Trachea, Via Natural or Artificial Opening (ICD-10-PCS; principal; 2018-06-02)
PROC: 5A1935Z Respiratory Ventilation, Less than 24 Consecutive Hours (ICD-10-PCS; 2018-06-02)
DX: T42.8X2A Poisoning by antiparkinsonism drugs and other central muscle-tone depressants, intentional self-harm, initial encounter (principal); G92 Toxic encephalopathy; J69.0 Pneumonitis due to inhalation of food and vomit; J96.00 Acute respiratory failure, unspecified whether with hypoxia or hypercapnia; Z99.11 Dependence on respirator [ventilator] status; J98.11 Atelectasis; F31.9 Bipolar disorder, unspecified; F32.9 Major depressive disorder, single episode, unspecified; E87.6 Hypokalemia; F11.21 Opioid dependence, in remission; F12.20 Cannabis dependence, uncomplicated; G40.909 Epilepsy, unspecified, not intractable, without status epilepticus; M41.9 Scoliosis, unspecified; F15.21 Other stimulant dependence, in remission; F17.200 Nicotine dependence, unspecified, uncomplicated; G83.9 Paralytic syndrome, unspecified; I10 Essential (primary) hypertension; Y92.89 Other specified places as the place of occurrence of the external cause; Z90.89 Acquired absence of other organs; Z91.5 Personal history of self-harm; Z81.8 Family history of other mental and behavioral disorders; Z86.73 Personal history of transient ischemic attack (TIA), and cerebral infarction without residual deficits; Z87.19 Personal history of other diseases of the digestive system; Z88.0 Allergy status to penicillin
CPT/HCPCS: 36415; 36600; J3490; J7620; 71045; 80053; 80061; 80307; 80329; 81003; 82550; 82803; 82962; 83605; 83690; 83735; 84100; 84478; 84484; 85025; 87040; 87070; 87081; 87205; 93005; 94002; 94003; 94640; 95816; G0378; J0696; J1644; J2704; J3010; J3480; J3486; C9113; G0480; J2060; J7030

== ENCOUNTER 2018-08-05 21:38 | Emergency (ER) | payer MEDICAID ==
[~2018-08-05] VITALS: Ht 193 cm; Wt 96.5 kg
[~2018-08-05 21:38] MED LIST changes: +BACL20TA PO; +CEFD300C37 PO; +METR500T PO; +TRAZ50TA66 PO
--- NOTE | 2018-08-05 22:02 | NUR ---
PT AMBULATES FROM TRIAGE TO ROOM WITH STEADY GAIT AND FRIENDS BY PT SIDE.
--- NOTE | 2018-08-05 22:26 | NUR ---
PT IN [facility] IN [place] AT THIS TIME; RAMBLING AND MAKING INCOMPREHENSIBLE SENTENCES. DR MENA AWARE. AWAITING IMAGING AT THIS TIME. FRIENDS AT NOTIFIED TO USE CALL LIGHT IF STAFF ASSISTANCE IS NEEDED.
--- NOTE | 2018-08-05 22:28 | NUR ---
PT TO CT VIA [facility].
[2018-08-05 22:53] LABS: BASOPHILS # (AUTO) 0.04 x10^3/uL (0-0.1); BASOPHILS % (AUTO) 1 % (0-1); EOSINOPHILS # (AUTO) 0.06 x10^3/uL (0-0.4); EOSINOPHILS % (AUTO) 1 % (1-7); LYMPHOCYTES # (AUTO) 1.42 x10^3/uL (1-3.4); LYMPHOCYTES % (AUTO) 15 % (22-44); MD NO; MEAN CORPUSCULAR HEMOGLOBIN 31.8 pg (27.5-34.5); MEAN CORPUSCULAR HGB CONC 34.5 g/dL (33.2-36.2); MEAN CORPUSCULAR VOLUME 92.3 fL (81-97); MEAN PLATELET VOLUME 8.8 fL (7.4-10.4); MONOCYTES # (AUTO) 0.64 x10^3/uL (0.2-0.8); MONOCYTES % (AUTO) 7 % (2-9); NEUTROPHILS # (AUTO) 7.47 x10^3/uL (1.8-6.8); NEUTROPHILS % (AUTO) 78 % (42-75); PLATELET COUNT 218 x10^3/uL (130-400); RED BLOOD COUNT 5.26 x10^6/uL (4.38-5.82); RED CELL DISTRIBUTION WIDTH 13.6 % (9.4-14.8)
[2018-08-05 23:11] LABS: ACETAMINOPHEN 2 mcg/mL (10-30); ALANINE AMINOTRANSFERASE 22 U/L (12-78); ANION GAP 6 mmol/L (5-15); CALCIUM 8.9 mg/dL (8.5-10.1); CHLORIDE 107 mmol/L (98-107); CREATININE 0.93 mg/dL (0.7-1.3); SALICYLATE LEVEL 1.8 mg/dL (2.8-20.0)
[2018-08-05 23:13] LABS: ALKALINE PHOSPHATASE 64 U/L (45-117); BILIRUBIN,TOTAL 0.6 mg/dL (0.2-1.0); TOTAL PROTEIN 7.7 g/dL (6.4-8.2)
[2018-08-05 23:36] VITALS: BP 111/69
--- NOTE | 2018-08-05 23:36 | NUR ---
PT D/C WITH D/C SUMMARY AND SCRIPTS. ALL QUESTIONS ANSWERED. PT AMBULATES TO REGISTRATION DESK WITH STEADY GAIT FOR D/C HOME. PT DENIES ANY OTHER NEEDS PERTAINING TO THIS VISIT.
== END 2018-08-05 23:40 | disposition home or self-care (01) ==
LOC: ED 23:38
DX: R41.82 Altered mental status, unspecified (principal); I10 Essential (primary) hypertension; F15.10 Other stimulant abuse, uncomplicated; F10.129 Alcohol abuse with intoxication, unspecified; F32.9 Major depressive disorder, single episode, unspecified
CPT/HCPCS: 36415; 70450; 80053; 80307; 80329; 85025; 99284; G0480

== ENCOUNTER 2018-11-25 10:30 | Inpatient (IN) | payer MEDICAID, OTHER ==
[~2018-11-25] VITALS: Ht 182.9 cm; Wt 108.0 kg
[2018-11-25] MEDS ORDERED: OMEP40CA6 PO (10:48)
[2018-11-25] MEDS ORDERED: SERT50TA PO (10:49)
[2018-11-25] MEDS ORDERED: TRAZ50TA66 PO (10:50)
--- NOTE | 2018-11-25 11:03 | NUR ---
PT RESTING, NON-VERBAL BUT WILL RESPOND TO TOUCH/VOICE. PER MOTHER AND GIRLFRIEND, PATIENT TOOK A QUANTITY OF 57 50MG TRAZADONE THIS MORNING AT APPROX. 9:45AM, AT WHICH TIME THE PATIENT SENT A TEXT MESSAGE TO THE GIRLFRIEND TELLING HER THAT HE HAD DONE SO. VS STABLE. PT ON CONTINUOUS CARDIAC AND SPO2 MONITORS. BP CUFF APPLIED.WILL CONTINUE TO MONITOR.
[2018-11-25 11:31] LABS: BASOPHILS # (AUTO) 0.03 x10^3/uL (0-0.1); BASOPHILS % (AUTO) 1 % (0-1); EOSINOPHILS # (AUTO) 0.17 x10^3/uL (0-0.4); EOSINOPHILS % (AUTO) 3 % (1-7); LYMPHOCYTES # (AUTO) 1.56 x10^3/uL (1-3.4); LYMPHOCYTES % (AUTO) 28 % (22-44); MD NO; MEAN CORPUSCULAR HEMOGLOBIN 31.8 pg (27.5-34.5); MEAN CORPUSCULAR HGB CONC 33.5 g/dL (33.2-36.2); MEAN CORPUSCULAR VOLUME 95.1 fL (81-97); MEAN PLATELET VOLUME 9.2 fL (7.4-10.4); MONOCYTES # (AUTO) 0.46 x10^3/uL (0.2-0.8); MONOCYTES % (AUTO) 8 % (2-9); NEUTROPHILS # (AUTO) 3.35 x10^3/uL (1.8-6.8); NEUTROPHILS % (AUTO) 60 % (42-75); PLATELET COUNT 188 x10^3/uL (130-400); RED BLOOD COUNT 5.01 x10^6/uL (4.38-5.82); RED CELL DISTRIBUTION WIDTH 12.7 % (9.4-14.8)
[2018-11-25 11:45] LABS: ALBUMIN 3.9 g/dL (3.4-5.0); ANION GAP 5 mmol/L (5-15); CALCIUM 8.8 mg/dL (8.5-10.1); CHLORIDE 111 mmol/L (98-107)
[2018-11-25 11:47] LABS: SALICYLATE LEVEL < 1.7 mg/dL (2.8-20.0)
--- NOTE | 2018-11-25 12:00 | NUR ---
PATIENT IS NOW AWAKE AND ALERT AND TALKING. PT STATES THAT HE TOOK A QUANTITY OF 18 501MG TRAZADONE PILLS THAT HE HAD COUNTED BEFORE HAND. PT STATES THAT IT WAS A SUICIDE ATTEMPT BUT THAT HE NO LONGER FEELS SUICIDAL AND THAT HE WAS JUST UPSET WITH HIS MOTHER AT THAT TIME.
--- NOTE | 2018-11-25 12:09 | NUR ---
REPORT TAKEN FROM CHAY. PT ALERT AND ORIENTEDX4. PT'S SO AT BEDSIDE. PT DENIES NEEDS AT THIS TIME. VSS. CONNECTED TO MONITOR. PT STATES HE DOES NOT NEED TO URINATE YET. REMINDED OF NEED TO URINATE.
--- NOTE | 2018-11-25 12:10 | NUR ---
SBAR HAND-OFF REPORT GIVEN TO TAHIRA DIALLO. PATIENT MOVED TO ROOM 3.
[2018-11-25 12:34] LABS: ALANINE AMINOTRANSFERASE 17 U/L (12-78); ALKALINE PHOSPHATASE 67 U/L (45-117); BILIRUBIN,TOTAL 0.4 mg/dL (0.2-1.0); CREATININE 1.05 mg/dL (0.7-1.3); TOTAL PROTEIN 7.6 g/dL (6.4-8.2)
[2018-11-25 13:02] LABS: AMPHETAMINE SCREEN, URINE Negative (Negative); BARBITURATE SCREEN, URINE Negative (Negative); BENZODIAZEPINE SCREEN, URINE Negative (Negative); CANNABINOID SCREEN, URINE Positive (Negative); COCAINE SCREEN, URINE Negative (Negative); METHADONE SCREEN, URINE Negative (Negative); OPIATE SCREEN, URINE Negative (Negative)
--- NOTE | 2018-11-25 13:06 | NUR ---
PT RESTING ON GURBERKLEY. NADN. SO AT BEDSIDE. VSS. DENIES NEEDS.
--- NOTE | 2018-11-25 13:41 | NUR ---
PT AGITATED AT THIS TIME. STATES HE WANTS TO LEAVE. "THIS PLACE DOESN'T FUCKING HELP ME. THEY GIVE ME MEDS AND SEND ME AWAY." THIS RN EXPLAINED TO PT THAT PSYCH DOCTOR WILL BE EVALUATING HIM AND THEN HE WILL BE PROVIDED WITH HELP AND MORE ANSWERS FOR THIS SITUATION. PT'S SO OTHER STATES HE IS TELLING HER HE WANTS TO KILL HIMSELF WHEN HE LEAVES HERE. PT CURRENLY BEING PLACED ON A LEGAL HOLD. ER MD AWARE OF SITUATION. SECURITY AT BEDSIDE OF PT.
[2018-11-25] MEDS ORDERED: ZIPRASIDONE 20 MG INJ IM ONE ×2 (14:00)
--- NOTE | 2018-11-25 14:00 | NUR ---
PT PULLED OFF MONITOR EQUIPMENT AND PULLED OUT IV. REFUSING TO ALLOW ANY MONITORING EQUIPTMENT.
--- NOTE | 2018-11-25 14:08 | NUR ---
PT BELONGINGS (PHONE AND 1 WHITE TSHIRT) LOCKED IN SECURE LOCKER OUT OF ROOM. PT MEDICATED PER EMAR AT THIS TIME.
--- NOTE | 2018-11-25 14:18 | NUR ---
TELE PSYCH CONSULT OCCURING AT BEDSIDE NOW.
--- NOTE | 2018-11-25 14:29 | NUR ---
REPORT GIVEN TO PSYCH MD AT THIS TIME FOR BEDSIDE TELE CONSULT.
--- NOTE | 2018-11-25 16:03 | NUR ---
PT REDUCED FROM 3 POINT TO 2 POINT RESTRAINT AT THIS TIME. PT RESTING ON GURNEY. NADN. OFFERED PO LIQUIDS.
--- NOTE | 2018-11-25 16:05 | NUR ---
FURTHER BELONGINGS (PANTS) REMOVED FROM PT AND PLACED IN SECURE LOCKER AT THIS TIME.
--- NOTE | 2018-11-25 16:54 | NUR ---
OFFERED DINNER AT THIS TIME. DENIES. DENIES ANY NEEDS. PT RESTING ON SULY. RAYA. SITTER AT BEDSIDE.
--- NOTE | 2018-11-25 17:14 | NUR ---
ALL RESTRAINTS REMOVED FROM PT AT THIS TIME. PT OFFERED FOOD- AGAIN DECLINED. PT OFFERED HELP TO CALL ANYONE WHO MAY NEED TO BE NOTIFIED REGARDING HIS ANKLE BRACELET DEVICE HE HAS IN PLACE ON LEFT ANKLE. PT REFUSED ANY HELP FOR THIS. PT NOW RESTING ON GURNEY. DENIES NEEDS. VSS. DOS SANTOS.
--- NOTE | 2018-11-25 18:14 | NUR ---
PT ASLEEP ON GURNEY AT THIS TIME. OFFERED FOOD AGAIN 5 MINUTES AGO. REFUSED AGAIN. NADN. SITTER AT BEDSIDE. ROOM SECURE.
--- NOTE | 2018-11-25 18:55 | NUR ---
REPORT RECIEVED FROM TAHIRA MESSINA. PT RESTING COMFORTABLY ON STRETCHER. EVEN EQUAL CHEST RISE AND FALL. NAD. SITTER PRESENT, PSYCH SAFE ROOM.
[2018-11-25] MEDS ORDERED: HALOPERIDOL 5 MG/ML IM PRN (20:00)
[2018-11-25] MEDS ORDERED: DIPHENHYDRAMINE 50 MG/ML, 1ML IM PRN (20:00)
[2018-11-25] MEDS ORDERED: LORazepam 2 MG/ML, 1ML IM PRN (20:00)
[2018-11-25] MEDS ORDERED: HALOPERIDOL 2 MG/ML ORAL SOL PO PRN (20:00)
--- NOTE | 2018-11-25 20:00 | NUR ---
PT RESTING COMORTABLY. PT AROUSABLE TO VOICE. PT DENIES SI AT THIS TIME. PT REPORTS FEELING MUCH BETTER. PT DENIES ANY NEEDS AT THIS TIME. URINAL AT BEDSIDE. SITTER PRESENT. WILL CONTINUE TO MONITOR. PT TO GO TO 2N WHEN ROOM RDY.
[2018-11-25] MEDS ORDERED: DOCUSATE 100 MG CAPSULE PO PRN (21:00)
[2018-11-25] MEDS ORDERED: OLANZAPINE 10 MG INJ IM PRN (21:00)
--- NOTE | 2018-11-25 21:30 | NUR ---
PT AWAKE, ALERT. PT COOPERATIVE AT THIS TIME. REPORT CALLED TO FLOOR.
[2018-11-25 21:48] VITALS: BP 144/83
[2018-11-26 08:00] VITALS: BP 111/69
[2018-11-26] MEDS: SERTRALINE 50MG TABLET PO SCH (08:10)
[2018-11-26 19:36] VITALS: BP 128/71
[2018-11-26] MEDS: ARIPIPRAZOLE 10 MG TABLET PO SCH (21:47)
[2018-11-27 07:41] VITALS: BP 109/68
[2018-11-27] MEDS: SERTRALINE 50MG TABLET PO SCH (08:01)
[2018-11-27] MEDS: ONDANSETRON ODT 4 MG PO PRN (08:07)
[2018-11-27] MEDS: ACETAMINOPHEN 325 MG TABLET PO PRN (11:49)
[2018-11-27] MEDS: LORazepam 1MG TABLET PO PRN (11:50)
[2018-11-27 19:30] VITALS: BP 109/68
[2018-11-27] MEDS: DIPHENHYDRAMINE 50 MG CAPSULE PO PRN (20:18)
[2018-11-27] MEDS: ARIPIPRAZOLE 10 MG TABLET PO SCH (20:18)
[2018-11-28] MEDS: LORazepam 1MG TABLET PO PRN ×3 (02:51→23:36)
[2018-11-28 08:00] VITALS: BP 119/73
[2018-11-28] MEDS: SERTRALINE 50MG TABLET PO SCH (08:50)
[2018-11-28] MEDS: ACETAMINOPHEN 325 MG TABLET PO PRN (14:47)
[2018-11-28 19:33] VITALS: BP 127/66
[2018-11-28] MEDS: DIPHENHYDRAMINE 50 MG CAPSULE PO PRN (20:04)
[2018-11-28] MEDS: ARIPIPRAZOLE 10 MG TABLET PO SCH (20:04)
[2018-11-28] MEDS: ONDANSETRON ODT 4 MG PO PRN (20:52)
[2018-11-29 07:43] VITALS: BP 140/89
[2018-11-29] MEDS: SERTRALINE 50MG TABLET PO SCH (08:07)
[2018-11-29] MEDS: LORazepam 1MG TABLET PO PRN (08:12)
[2018-11-29] MEDS: ONDANSETRON ODT 4 MG PO PRN (11:02)
[2018-11-29] MEDS ORDERED: ARIP10TA33 PO (12:54)
== END 2018-11-29 13:28 | disposition home or self-care (01) | DRG 918 ==
LOC: ED 13:19 → EDIP 19:27 → 2N 21:56
PROVIDERS: ADMIT Internal Medicine; ATTEND Internal Medicine
DX: T43.212A Poisoning by selective serotonin and norepinephrine reuptake inhibitors, intentional self-harm, initial encounter (principal); F43.0 Acute stress reaction; F60.3 Borderline personality disorder; G40.409 Other generalized epilepsy and epileptic syndromes, not intractable, without status epilepticus; F11.10 Opioid abuse, uncomplicated; F31.9 Bipolar disorder, unspecified; R45.87 Impulsiveness; Y92.89 Other specified places as the place of occurrence of the external cause; Z78.1 Physical restraint status; Z87.19 Personal history of other diseases of the digestive system; Z91.5 Personal history of self-harm; Z88.0 Allergy status to penicillin; M41.9 Scoliosis, unspecified; Z65.3 Problems related to other legal circumstances
CPT/HCPCS: 36415; 80053; 80307; 85025; 93005; 96372; G0378; J3486; Q0162

== ENCOUNTER 2020-06-21 12:16 | Emergency (ER) | payer MEDICAID ==
[~2020-06-21] VITALS: Ht 193 cm; Wt 102.5 kg
[~2020-06-21 12:16] MED LIST changes: +ARIP10TA33 PO; +OMEP40CA42 PO; -OMEP40CA6 PO
[2020-06-21 13:03] LABS: BASOPHILS % (AUTO) 1 % (0-1); EOSINOPHILS % (AUTO) 0 % (1-7); LYMPHOCYTES % (AUTO) 25 % (22-44); MD NO; MEAN CORPUSCULAR HEMOGLOBIN 31.7 pg (27.5-34.5); MEAN CORPUSCULAR HGB CONC 34.5 g/dL (33.2-36.2); MEAN PLATELET VOLUME 9.2 fL (7.4-10.4); MONOCYTES % (AUTO) 5 % (2-9); NEUTROPHILS % (AUTO) 69 % (42-75); PLATELET COUNT 193 x10^3/uL (130-400); RED BLOOD COUNT 4.72 x10^6/uL (4.38-5.82); RED CELL DISTRIBUTION WIDTH 13.4 % (9.4-14.8)
[2020-06-21 13:11] LABS: INTERNATIONAL NORMALIZED RATIO 1.15 (0.93-1.1); PROTHROMBIN TIME 12.3 Seconds (9.6-11.5)
[2020-06-21 13:12] LABS: ALANINE AMINOTRANSFERASE 25 U/L (12-78); ANION GAP 8 mmol/L (5-15); CALCIUM 8.9 mg/dL (8.5-10.1); CHLORIDE 110 mmol/L (98-107); CREATININE 1.04 mg/dL (0.7-1.3)
[2020-06-21 13:15] LABS: ALKALINE PHOSPHATASE 38 U/L (45-117); BILIRUBIN,TOTAL 0.4 mg/dL (0.2-1.0); TOTAL PROTEIN 7.5 g/dL (6.4-8.2)
[2020-06-21 13:16] LABS: SALICYLATE LEVEL < 1.7 mg/dL (2.8-20.0)
[2020-06-21 13:49] VITALS: BP 120/80
[2020-06-21] MEDS ORDERED: IBUPROFEN 200 MG TABLET PO ONE (14:00)
[2020-06-21] MEDS ORDERED: IBUPROFEN 600 MG TABLET ONE (14:27)
== END 2020-06-21 14:33 | disposition home or self-care (01) ==
LOC: ED 14:27
DX: H60.92 Unspecified otitis externa, left ear (principal); I10 Essential (primary) hypertension
CPT/HCPCS: 36415; 80053; 80299; 80329; 85025; 85610; 99283; G0480

== ENCOUNTER 2020-11-02 20:07 | Emergency (ER) | payer MEDICAID ==
[~2020-11-02] VITALS: Ht 193 cm; Wt 95.0 kg
[~2020-11-02 20:07] MED LIST changes: -OMEP40CA42 PO; +OMEP40CA8 PO
--- NOTE | 2020-11-02 20:10 | NUR ---
PT BIB EMS[facility] ON L2K. PT APPARENTLY HAD A VERBAL ALTERCATION WITH MOTHER JALEESA AND STATED HE HAD A PANIC ATTACK. PT PUT 5 TRAZADONE PILLS IN HIS MOUTH AND IMMEDIATELY SPIT THEM OUT. PT DENIES SI/HI AND IS CALM UPON ARRIVAL TO [facility] ED. PT CHANGED INTO GOWN AND IN GURNEY. PT BELONGINGS PLACED IN LOCKED STORAGE IN 1 OF 1 PT BELONGINGS BAG. PT VERBALIZES UNDERSTANDING FOR NEED OF URINE SAMPLE AND VERBALIZES UNDERSTANDING OF ER PROCESS AND POC. PT DENIES ANY OTHER NEEDS AT THIS TIME.
[2020-11-02 20:17] VITALS: BP 127/62
--- NOTE | 2020-11-02 20:40 | NUR ---
URINE COLLECTED AND TUBED TO LAB
[2020-11-02 21:06] LABS: BASOPHILS % (AUTO) 1 % (0-1); EOSINOPHILS % (AUTO) 2 % (1-7); LYMPHOCYTES % (AUTO) 28 % (22-44); MEAN CORPUSCULAR HEMOGLOBIN 31.9 pg (27.5-34.5); MEAN PLATELET VOLUME 9.3 fL (7.4-10.4); MONOCYTES % (AUTO) 11 % (2-9); NEUTROPHILS % (AUTO) 59 % (42-75); PLATELET COUNT 188 x10^3/uL (130-400); RED BLOOD COUNT 4.31 x10^6/uL (4.38-5.82); RED CELL DISTRIBUTION WIDTH 13.3 % (9.4-14.8)
--- NOTE | 2020-11-02 21:07 | NUR ---
PT ASLEEP IN [facility] AT THIS TIME
[2020-11-02 21:18] LABS: ALBUMIN 3.4 g/dL (3.4-5.0); ANION GAP 5 mmol/L (5-15); CALCIUM 8.3 mg/dL (8.5-10.1); CHLORIDE 108 mmol/L (98-107)
[2020-11-02 21:23] LABS: ALANINE AMINOTRANSFERASE 24 U/L (12-78); ALKALINE PHOSPHATASE 42 U/L (45-117); BILIRUBIN,TOTAL 0.3 mg/dL (0.2-1.0); CREATININE 1.02 mg/dL (0.7-1.3); TOTAL PROTEIN 6.8 g/dL (6.4-8.2)
[2020-11-02 21:24] LABS: AMPHETAMINE SCREEN, URINE Negative (Negative); BARBITURATE SCREEN, URINE Negative (Negative); BENZODIAZEPINE SCREEN, URINE Negative (Negative); CANNABINOID SCREEN, URINE Positive (Negative); COCAINE SCREEN, URINE Negative (Negative); METHADONE SCREEN, URINE Negative (Negative); OPIATE SCREEN, URINE Negative (Negative)
[2020-11-02 21:34] LABS: SALICYLATE LEVEL < 1.7 mg/dL (2.8-20.0)
--- NOTE | 2020-11-02 22:33 | NUR ---
pt asleep in [facility] at this time with nadn. equal bilateral rise and fall of chest noted. awaiting tele psych consult for pt disposition at this time.
--- NOTE | 2020-11-02 23:00 | NUR ---
REPORT FROM MAGALI HOFFMANN, TRANSFER OF CARE AT THIS TIME
--- NOTE | 2020-11-02 23:04 | NUR ---
REPORT OF PT TO TAHIRA ACEVEDO. ALL QUESTIONS ANSWERED.
--- NOTE | 2020-11-02 23:14 | NUR ---
PT RESTING ON GURNEY NADN RESP EVEN AND UNLABORED NO NEEDS VERBALIZED AT THIS TIME TELE PSYCH ROBOT IN ROOM AWAITING CONSULT
--- NOTE | 2020-11-03 00:13 | NUR ---
PT RESTING ON GURNEY NADN RESP EVEN AND UNLABORED NO NEEDS VERBALIZED AT THIS TIME TELE PSYCH ROBOT IN ROOM AWAITING CONSULT
--- NOTE | 2020-11-03 01:09 | NUR ---
PT RESTING ON GURNEY NADN RESP EVEN AND UNLABORED NO NEEDS VERBALIZED AT THIS TIME TELE PSYCH ROBOT IN ROOM AWAITING CONSULT
--- NOTE | 2020-11-03 02:05 | NUR ---
PT RESTING ON GURBERKLEY NADN RESP EVEN AND UNLABORED NO NEEDS VERBALIZED AT THIS TIME
--- NOTE | 2020-11-03 02:35 | NUR ---
PT ACTIVELY PARTICIPATING IN TELEPSYCH AT THIS TIME
--- NOTE | 2020-11-03 03:16 | NUR ---
PT PROVIDED BELONGINGS AND STS WILL CALL GIRLFRIEND FOR RIDE HOME FOR SAFE DC. PT CALM AND COOPERATIVE WITH RN.
--- NOTE | 2020-11-03 04:30 | NUR ---
Patient/Caregiver given discharge instructions and they have confirmed that they understand the instructions. Patient ambulatory with steady gait. NAD, all questions answered appropriately, denies additional needs at this time. No personal belongings left in room after discharge.
== END 2020-11-03 04:31 | disposition home or self-care (01) ==
LOC: ED 23:50
DX: F41.1 Generalized anxiety disorder (principal); R45.1 Restlessness and agitation; I10 Essential (primary) hypertension; F17.210 Nicotine dependence, cigarettes, uncomplicated
CPT/HCPCS: 36415; 80053; 80299; 80307; 80320; 80329; 85025; 99285; G0480